=== PATIENT | female | born 1960 | race Caucasian/White ===

== ENCOUNTER 2016-12-22 18:52 | Inpatient (IN) | payer OTHER ==
[~2016-12-22] VITALS: Ht 165.1 cm; Wt 82.8 kg
--- NOTE | 2016-12-22 20:04 | NUR ---
PT STATES SHE WENT TO PRIMARY DR TODAY AND SHE HAD BLOOD TEST DONE, THEY CALLED HER AT HOME AND TOLD HER THAT HER GEMOGLOBIN WAS 6.4, AND SHES NOT SURE OF THE HCT, BUT THE DR TOLD HER TO COME TO THE HOSPITAL FOR POSSIBLE TRANSFUSION. PT DENIES ANY SOB/CHEST PAIN/DIZZINESS. A/O X4. NO S/S DISTRESS. DENIES PAIN. RR EVEN AND UNLABORED ON ROOM AIR. AWAITING MSE BY
--- NOTE | 2016-12-22 20:51 | NUR ---
LAB AT BEDSIDE
[2016-12-22 21:16] LABS: PLATELET COUNT 227 x10^3mcL (130-400)
[2016-12-22 21:19] LABS: CALCIUM 8.3 mg/dL (8.5-10.1); CARBON DIOXIDE 27.9 mmol/L (21-32); CHLORIDE SERUM 107 mmol/L (98-107); CREATININE SERUM 0.5 mg/dL (0.6-1.0); GFR1 > 60 mL/min; GLUCOSE SERUM 97 mg/dL (74-106); POTASSIUM SERUM 3.9 mmol/L (3.5-5.1); SODIUM SERUM 143 mmol/L (136-145)
--- NOTE | 2016-12-22 21:23 | NUR ---
CRITICAL RESULT [facility] 6.01/[address] Amin
[2016-12-22 21:24] LABS: ALBUMIN 3.6 g/dL (3.4-5.0); ALKALINE PHOSPHATASE 97 U/L (46-116); ALT/SGPT 17 U/L (14-59); AST/SGOT 20 U/L (15-37); BILIRUBIN TOTAL 0.32 mg/dL (0.20-1.00); TOTAL PROTEIN, SERUM 6.8 g/dL (6.4-8.2)
[2016-12-22 21:31] LABS: IRON 17 ug/dL (50-170); TOTAL IRON BINDING CAPACITY 528 ug/dL (250-450)
[2016-12-22 21:45] LABS: BAND NEUTROPHIL 0 % (0-10); BASOPHIL 0 % (0-2); MONOCYTE 6 % (0-7); SEGMENTED NEUTROPHILS 55 % (37-75); rbc morphology (normal/abnorm) ABNORMAL (NORMAL)
[2016-12-22 21:48] LABS: PLATELET MORPHOLOGY PLATELETS NORMAL
[2016-12-22] MEDS ORDERED: CELEXA10 MG PO (22:00)
--- NOTE | 2016-12-22 22:05 | NUR ---
CALLED GAVE REPORT TO MALINDA GARCIA. ALL QUESTIONS ANSWERED
[2016-12-22 22:13] LABS: MAGNESIUM 2.1 mg/dL (1.8-2.4); PHOSPHOROUS 3.6 mg/dL (2.5-4.9)
--- NOTE | 2016-12-22 22:27 | NUR ---
DR Del Toro STATED PT CAN BE TRANSFERRED TO FLOOR. BLOOD TO BE ADMINISTERED ON FLOOR
--- NOTE | 2016-12-22 22:35 | NUR ---
RECEIVED PT FROM ED VIA [facility], CAME IN DUE TO LOW HEMOGLOBIN. AAOX4. DENIES HEADACHE/DIZZINESS. NO SOB NOTED. DENIES CHEST PAIN/PRESSURE, NSR ON THE MONITOR. DENIES ABDOMINAL DISCOMFORT. PALE. PULSES ARE PALPABLE. NO EDEMA NOTED. IV SITE PATENT AND INTACT. SIDE RAILS UPX2. CALL LIGHT ON REACH. PRIMARY NURSE FADY AT BEDSIDE FOR CONTINUITY OF CARE
[2016-12-22 22:49] VITALS: BP 159/69
[2016-12-22 22:56] VITALS: Ht 165.1 cm; Wt 82.8 kg
--- NOTE | 2016-12-23 00:15 | NUR ---
FIRST UNIT OF [facility] TRANSFUSION STARTED. VS AT 152/67, 74 HR, 98.6 TEMP, 96% IN RA, 17 RR. IN NO ACUTE DISTRESS OR DISCOMFORT. WILL CONT TO CLOSELY MONITOR PT ON BEDSIDE FOR THE NEXT 15 MINS.
--- NOTE | 2016-12-23 00:30 | NUR ---
NO ADVERSE REACTION DEVELOPED. VS AT 150/63, 73 HR, 98.2, 17 RR, 96% IN RA. SAFETY MEASURES ENSURED. PT IN NO ACUTE DISTRESS OR DISCOMFORT. CALL LIGHT WITHIN REACH.
[2016-12-23 02:02] LABS: microscopic required? NO
[2016-12-23 02:45] LABS: urine erythrocyte NEGATIVE (NEGATIVE)
--- NOTE | 2016-12-23 03:05 | NUR ---
FIRST UNIT OF [facility] FINISHED TRANSFUSING. PT TOLERATED WELL WITH NO ADVERSE REACTION DEVELOPED. VS 143/62, 67 HR, 98.6 TEMP , 97% O2 SAT, 15 RR. SAFETY MEASURES ENSURED. CALL LIGHT WITHIN REACH.
--- NOTE | 2016-12-23 04:00 | NUR ---
SECOND UNIT OF [facility] STARTED TRANSFUSING. PT IN NO ACUTE DISTRESS OR DISCOMFORT. VS AT 156/54, 70 HR, 98.2 TEMP, 97% O2 SAT, 16 RR. WILL CONT TO CLOSELY MONITOR PT AT BEDSIDE.
--- NOTE | 2016-12-23 04:15 | NUR ---
PT TOLERATING TRANSFUSION WELL. VS AT 145/57, 70 HR, 98.3 TEMP, 99% O2 SAT, 15 RR. NO ADVERSE REACTION DEVELOPED. SAFETY MEASURES ENSURED. CALL LIGHT WITHIN REACH.
--- NOTE | 2016-12-23 05:30 | NUR ---
TRANSFUSION OF SECOND [facility] STILL TRANSFUSING AT THIS TIME. PT IN NO ACUTE DISTRESS OR DISCOMFORT. TOLERATING TRANSFUSION WELL. SAFETY MEASURES ENSURED. CALL LIGHT WITHIN REACH.
[2016-12-23 06:05] VITALS: BP 144/56
--- NOTE | 2016-12-23 06:55 | NUR ---
SECOND UNIT OF [facility] FINISHED TRANFUSING. NO ADVERSE REACTION DEVELOPED. VS 149/63, 65 HR, 98% IN RA, 98.6 TEMP. 17 RR. SAFETY MEASURES ENSURED. CALL LIGHT WITHIN REACH.
--- NOTE | 2016-12-23 07:59 | NUR ---
PT REMOVED TELE MONITOR, CAME TO THE NURSES STATION DRESSED AND STATED " I FIGURED WHAT DIFFERENCE DOES IT MAKE IF I LEAVE NOW OR IN A COUPLE HOURS" AMA PAPER WERE PRINTED SIGND BE THE PT AND PUT IN THE CHART. IV WAS DC'D CATHETER TIP WAS INTACT. ALL BANDS WERE REMOVED, ALL BELONGINGS WITH PT, AND PT LEFT THROUGH THE BACK DOOR ACCOMPANIED BY AIRCRAFT MAINTENANCE ENGINEER.
== END 2016-12-23 07:55 | disposition left against medical advice (07) | DRG 811 ==
LOC: ED 18:52 → DU 21:35
PROVIDERS: Specialist; ADMIT Family Medicine
PROC: 30233N1 Transfusion of Nonautologous Red Blood Cells into Peripheral Vein, Percutaneous Approach (ICD-10-PCS; principal; 2016-12-23)
DX: D50.9 Iron deficiency anemia, unspecified (principal); N17.0 Acute kidney failure with tubular necrosis; E83.51 Hypocalcemia; F41.8 Other specified anxiety disorders; Z98.84 Bariatric surgery status; Z68.30 Body mass index [BMI] 30.0-30.9, adult; Z87.891 Personal history of nicotine dependence; Z96.698 Presence of other orthopedic joint implants
CPT/HCPCS: 80307; 83880; 84439; J7030; J7050; P9016; Q0092; Q0163

== ENCOUNTER → 2016-12-22 | Outpatient (CLI) | payer OTHER ==
[~2016-12-22] MED LIST: CELEXA10 MG PO
[2016-12-22 12:55] LABS: PLATELET COUNT 264 x10^3mcL (130-400)
[2016-12-22 13:14] LABS: ALBUMIN 3.6 g/dL (3.4-5.0); ALKALINE PHOSPHATASE 93 U/L (46-116); ALT/SGPT 21 U/L (14-59); AST/SGOT 19 U/L (15-37); BILIRUBIN TOTAL 0.37 mg/dL (0.20-1.00); CALCIUM 8.3 mg/dL (8.5-10.1); CARBON DIOXIDE 29.3 mmol/L (21-32); CHLORIDE SERUM 106 mmol/L (98-107); CHOLESTEROL 148 mg/dL (<200); CREATININE SERUM 0.5 mg/dL (0.6-1.0); FREE T4 0.98 ng/dL (0.76-1.46); GFR1 > 60 mL/min; GLUCOSE SERUM 89 mg/dL (74-106); POTASSIUM SERUM 3.6 mmol/L (3.5-5.1); SODIUM SERUM 142 mmol/L (136-145); TOTAL PROTEIN, SERUM 6.7 g/dL (6.4-8.2); TRIGLYCERIDES 74 mg/dL (<150)
[2016-12-22 13:15] LABS: CHOLESTEROL/HDL RATIO 2.3; HDL CHOLESTEROL 65 mg/dL (40-60)
[2016-12-22 13:37] LABS: RED CELL DISTRIBUTION WIDTH 21.3 % (11.5-14.5)
[2016-12-22 13:40] LABS: BAND NEUTROPHIL 1 % (0-10); MONOCYTE 4 % (0-7); SEGMENTED NEUTROPHILS 59 % (37-75)
[2016-12-22 13:41] LABS: rbc morphology (normal/abnorm) ABNORMAL (NORMAL)
== END | disposition home or self-care (01) ==
LOC: LB 11:44
PROVIDERS: Family Medicine
DX: Z13.29 Encounter for screening for other suspected endocrine disorder (principal)
CPT/HCPCS: 82652; 84207; 84439; 84597

== ENCOUNTER → 2017-01-14 | Outpatient (CLI) | payer OTHER ==
[2017-01-14 10:57] LABS: PLATELET COUNT 231 x10^3mcL (130-400)
[2017-01-14 10:58] LABS: RED CELL DISTRIBUTION WIDTH 34.9 % (11.5-14.5)
[2017-01-14 11:20] LABS: BAND NEUTROPHIL 0 % (0-10); BASOPHIL 0 % (0-2); MONOCYTE 7 % (0-7); SEGMENTED NEUTROPHILS 51 % (37-75)
[2017-01-14 11:21] LABS: rbc morphology (normal/abnorm) ABNORMAL (NORMAL)
[2017-01-14 11:22] LABS: ovalocyte/elliptocyte 1+
[2017-01-17 08:26] LABS: VITAMIN B1 (THIAMINE) 184.7 nmol/L (66.5-200.0)
== END | disposition home or self-care (01) ==
LOC: LB 10:00
PROVIDERS: Family Medicine
DX: Z98.84 Bariatric surgery status (principal)
CPT/HCPCS: 82525; 84425; 84630

== ENCOUNTER → 2017-07-20 | Outpatient (CLI) | payer OTHER | END | disposition home or self-care (01) | LOC: RD 12:04 | DX: M54.5 Low back pain (principal) | CPT/HCPCS: Q0092 ==

== ENCOUNTER → 2018-06-22 | Outpatient (CLI) | payer OTHER ==
[2018-06-22 12:53] LABS: BASOPHIL % 1.2 % (0-2); PLATELET COUNT 237 x10^3mcL (130-400); RED BLOOD CELLS 4.35 M/mm3 (4.10-5.10)
[2018-06-22 12:56] LABS: RED CELL DISTRIBUTION WIDTH 16.4 % (11.5-14.5)
[2018-06-22 13:09] LABS: ALBUMIN 3.6 g/dL (3.4-5.0); ALKALINE PHOSPHATASE 65 U/L (46-116); ALT/SGPT 31 U/L (14-59); AST/SGOT 27 U/L (15-37); BILIRUBIN DIRECT 0.07 mg/dL (0.0-0.2); BILIRUBIN TOTAL 0.3 mg/dL (0.20-1.00); CALCIUM 9.1 mg/dL (8.5-10.1); CHLORIDE SERUM 101 mmol/L (98-107); CREATININE SERUM 0.6 mg/dL (0.6-1.0); GFR1 > 60 mL/min; GLUCOSE SERUM 94 mg/dL (74-106); POTASSIUM SERUM 3.4 mmol/L (3.5-5.1); SODIUM SERUM 139 mmol/L (136-145); TOTAL PROTEIN, SERUM 7.3 g/dL (6.4-8.2); TRIGLYCERIDES 140 mg/dL (<150)
[2018-06-22 13:11] LABS: CHOLESTEROL 203 mg/dL (<200); CHOLESTEROL/HDL RATIO 2.9; HDL CHOLESTEROL 69 mg/dL (40-60)
== END | disposition home or self-care (01) ==
LOC: LB 11:45
PROVIDERS: Internal Medicine
DX: Z00.00 Encounter for general adult medical examination without abnormal findings (principal)

== ENCOUNTER → 2018-12-18 | Outpatient (CLI) | payer OTHER | END | disposition home or self-care (01) | LOC: RD 20:06 | DX: M25.531 Pain in right wrist (principal); M79.631 Pain in right forearm; M25.521 Pain in right elbow ==

== ENCOUNTER → 2019-02-14 | Outpatient (CLI) | payer OTHER | END | disposition home or self-care (01) | LOC: RD 13:02 | DX: M47.9 Spondylosis, unspecified (principal) ==

== ENCOUNTER → 2020-05-30 | Outpatient (CLI) | payer OTHER ==
[2020-05-30 13:35] LABS: BASOPHIL % 0.8 % (0-2); PLATELET COUNT 259 x10^3mcL (130-400)
[2020-05-30 13:39] LABS: ALBUMIN 3.6 g/dL (3.4-5.0); ALKALINE PHOSPHATASE 63 U/L (46-116); ALT/SGPT 19 U/L (14-59); AST/SGOT 22 U/L (15-37); BILIRUBIN DIRECT 0.09 mg/dL (0.0-0.2); CALCIUM 8.7 mg/dL (8.5-10.1); CARBON DIOXIDE 30.4 mmol/L (21-32); CHLORIDE SERUM 102 mmol/L (98-107); CHOLESTEROL 180 mg/dL (<200); CREATININE SERUM 0.7 mg/dL (0.6-1.0); GFR1 > 60 mL/min; GLUCOSE SERUM 97 mg/dL (74-106); SODIUM SERUM 140 mmol/L (136-145); TOTAL PROTEIN, SERUM 6.9 g/dL (6.4-8.2); TRIGLYCERIDES 79 mg/dL (<150)
[2020-05-30 13:55] LABS: RED CELL DISTRIBUTION WIDTH 17.5 % (11.5-14.5)
[2020-05-30 16:08] LABS: CHOLESTEROL/HDL RATIO 2.9; HDL CHOLESTEROL 63 mg/dL (40-60)
== END | disposition home or self-care (01) ==
LOC: LB 12:38
PROVIDERS: ATTEND Internal Medicine
DX: Z00.00 Encounter for general adult medical examination without abnormal findings (principal)

== ENCOUNTER → 2020-06-27 | Outpatient (CLI) | payer OTHER ==
[2020-06-27 10:34] LABS: CALCIUM 8.9 mg/dL (8.5-10.1); CARBON DIOXIDE 31.1 mmol/L (21-32); CHLORIDE SERUM 100 mmol/L (98-107); CREATININE SERUM 0.6 mg/dL (0.6-1.0); GFR1 > 60 mL/min; GLUCOSE SERUM 104 mg/dL (74-106); POTASSIUM SERUM 3.2 mmol/L (3.5-5.1); SODIUM SERUM 138 mmol/L (136-145)
== END | disposition home or self-care (01) ==
LOC: LB 10:05
PROVIDERS: ATTEND Internal Medicine
DX: E87.6 Hypokalemia (principal)